=== PATIENT | female | born 1990 | race Caucasian/White ===

== ENCOUNTER 2020-07-05 20:30 | Emergency (ER) | payer MEDICAID ==
[~2020-07-05] VITALS: Ht 165.1 cm; Wt 104.5 kg
[~2020-07-05 20:30] MED LIST: No home meds
[2020-07-05 20:38] VITALS: BP 125/74
[2020-07-05] MEDS ORDERED: methylPREDNISolone sod succ 125mg/2ml vial IV ONE (21:20)
[2020-07-05] MEDS ORDERED: diphenhydrAMINE 25mg capsule PO ONE (21:20)
[2020-07-05] MEDS ORDERED: triamcinolone acetonide 40mg/ml inj IM ONE (21:25)
== END 2020-07-05 21:37 | disposition home or self-care (01) ==
LOC: ER 20:31
DX: L50.9 Urticaria, unspecified (principal)
CPT/HCPCS: 96372; 99283; J3301; Q0163